=== PATIENT | female | born 1930 | race Caucasian/White ===

== ENCOUNTER 2016-07-14 15:32 | Inpatient (IN) | payer OTHER, BC ==
[~2016-07-14] VITALS: Ht 152.4 cm; Wt 62.3 kg
[~2016-07-14 15:32] MED LIST: ACETAMINOPHEN650 M7 PO; ADULT LOW DOSE81 M1 PO; AMLODIPINE BESYL5 MG PO; AQUAPHOR W-NAT50 GM TP; ASPIR 8181 M1 PO; ASPIR-LOW81 MG PO; ASPIRIN EC325 MG PO; ASPIRIN81 M1 PO; ASPIRIN81 M2 PO; ATORVASTATIN CA40 MG PO; AUGMENTIN875 MG PO; Aspirin E.C. PO; BACTRIM,SEPT1 TABLET PO; CAL-CITRATE PL1 EACH PO; CALCIUM 600 +1 EAC1 PO; CALCIUM CITRAT1 EA10 PO; CEFTIN250 MG PO; CITRACAL D + H1 EACH PO; CLOPIDOGREL75 MG PO; COL-RITE100 M1 PO; COLACE100 MG PO; CYCLOBENZAPRINE5 M1 PO; DELTASONE DOSEPA5 MG PO; DILAUDID2 MG PO; DOCUSATE SODIU100 MG PO; DULCOLAX10 MG PR; DUONEB 2.5-0.5 M3 ML IH; DURAGESIC12 MCG TD; DURAGESIC25 MCG TD; DURAGESIC50 MCG TD; ELIQUIS2.5 MG PO; ENSURE LIQUID237 M2 PO; ESTRACE1 MG PO; ESTRACE42.5 GM VG; FENTANYL1 EAC1 TD; FENTANYL1 EAC4 TD; FERROUS SULFAT325 MG PO; FLEXERIL5 MG PO; FOLIC ACID1 MG PO; FOSAMAX70 MG PO; FUROSEMIDE20 MG PO; FUROSEMIDE40 MG PO; GLUCOTROL XL10 MG PO; IRON325 M1 PO; IRON325 MG PO; IRON55 MG PO; LEVAQUIN500 MG PO; LEVEMIR100 UNIT/1 SQ; LEVOTHYROXINE88 MCG PO; LIDOCAINE700 MG TD; LIPITOR40 MG PO; LISINOPRIL5 MG PO; LOPRESSOR25 MG PO; LOPRESSOR50 MG PO; LOSARTAN POTASS25 MG PO; MAGNESIUM500 MG PO; METHOTREXATE2.5 MG PO; METOPROLOL SUCC25 MG PO; METOPROLOL TART25 MG PO; MILK OF MAGN PO; MIRALAX17 GM PO; MIRALAX255 GM PO; NITROSTAT0.4 MG SL; NIZORAL 2% CREA15 GM TP; NORVASC5 MG PO; NOVOLOG PE100 UNITS/ SC; OXYBUTYNIN CHLOR5 MG PO; PANTOPRAZOLE SO40 MG PO; PLAVIX75 MG PO; POTASSIUM CHLO20 ME1 PO; PRAVASTATIN SOD80 MG PO; PREDNISONE1 MG PO; PRILOSEC20 MG PO; PROMETHAZINE HC25 M1 PO; PROMETHAZINE12.5 M1 PO; PROTONIX40 MG PO; RAYOS2 MG PO; SLOW FE142 MG PO; ST. JOSEPH ASPI81 MG PO; SYNTHROID50 MCG PO; SYNTHROID75 MCG PO; SYNTHROID88 MCG PO; THERAGRAN1 TABLET PO; TIROSINT75 MCG PO; TOLTERODINE TART2 M1 PO; TRAMADOL HCL50 MG PO; TYLENOL325 M1 PO; TYLENOL650 MG PR; ULTRAM50 MG PO; WELCHOL625 MG PO
[2016-07-14 17:33] LABS: ADD MIUA? NO; BILIRUBIN NEGATIVE; BLOOD NEGATIVE; COLOR YELLOW ((YELLOW)); GLUCOSE (STRIP) NEGATIVE; KETONES NEGATIVE; LEUKOCYTES NEGATIVE; NITRITE NEGATIVE; PROTEIN (STRIP) NEGATIVE; SPECIFIC GRAVITY 1.015 (1.000-1.030); UCUL ADDED? NO; UROBILINOGEN 0.2 MG/DL (0.2-1.0)
[2016-07-14 17:39] LABS: EOSINOPHIL (%) 1.8 % (0-5); EOSINOPHIL COUNT 0.2 K/uL (0-0.3); HEMATOCRIT 41.3 % (36.0-46.0); IMMATURE GRANULOCYTE (%) 0.1 % (0.0-0.7); IMMATURE GRANULOCYTE COUNT 0.1 K/uL; LYMPHOCYTE COUNT 1.6 K/uL (1.0-2.8); MCH 30.1 PG (29.0-34.0); MCHC 32.7 G/DL (30.0-36.0); MCV 92.2 FL (83-99); MEAN PLAT.VOLUME 10.3 uM^3 (9.5-12.4); MONOCYTE (%) 11.8 % (3-12); MONOCYTE COUNT 1.2 K/uL (0-0.8); NEUTROPHIL (%) 70.4 % (45-76); NEUTROPHIL COUNT 7.1 K/uL (1.8-6.4); PLATELET COUNT 219 K/uL (156-360); RBC DIS.WIDTH-CV 13.9 % (11.8-14.6); RBC DIS.WIDTH-SD 45.9 % (39-53); RED BLOOD COUNT 4.48 M/uL (3.80-5.20)
[2016-07-14 17:57] LABS: LIPASE 22 U/L (1.0-51.0)
[2016-07-14 18:01] LABS: TROP-I INTERPRETATION NEGATIVE; TROPONIN-I < 0.01 ng/mL (0.0-0.30)
[2016-07-14 21:53] LABS: CHLORIDE 112 mEq/L (99-109); POTASSIUM 4.1 mEq/L (3.7-5.4); SODIUM 145 mEq/L (136-147)
[2016-07-14 22:07] LABS: GLUCOSE 118 mg/dL (70-99)
[2016-07-14 22:08] LABS: ANION GAP 11 MEQ/L (2-14)
[2016-07-14 22:09] LABS: TOTAL BILIRUBIN 0.6 mg/dL (0.0-1.0)
[2016-07-14 22:10] LABS: ALKALINE PHOSPHATASE 59 IU/L (3-129)
[2016-07-14 22:11] LABS: GFR ESTIMATE (CALCULATED) > 59 mL/min/
[2016-07-14 22:12] LABS: UREA NITROGEN (BUN) 15 mg/dL (9-23)
[2016-07-14] MEDS ORDERED: LO-DOSE ASPIRIN81 M2 PO (23:29)
[2016-07-14] MEDS ORDERED: ESTRACE42.5 GM VG (23:29)
[2016-07-14] MEDS ORDERED: AZITHROMYCIN500 M1 PO (23:30)
[2016-07-14] MEDS ORDERED: PREDNISONE1 MG PO (23:30)
[2016-07-15 01:25] LABS: TROP-I INTERPRETATION NEGATIVE; TROPONIN-I < 0.01 ng/mL (0.0-0.30)
[2016-07-15 02:15] VITALS: BP 157/67
[2016-07-15 05:14] VITALS: BP 146/52
[2016-07-15 08:24] VITALS: BP 143/65
[2016-07-15 08:58] LABS: EOSINOPHIL (%) 3.9 % (0-5); EOSINOPHIL COUNT 0.3 K/uL (0-0.3); HEMATOCRIT 39.5 % (36.0-46.0); IMMATURE GRANULOCYTE (%) 0.1 % (0.0-0.7); LYMPHOCYTE COUNT 2.2 K/uL (1.0-2.8); MCH 29.6 PG (29.0-34.0); MCHC 31.9 G/DL (30.0-36.0); MCV 92.9 FL (83-99); MEAN PLAT.VOLUME 10.5 uM^3 (9.5-12.4); NEUTROPHIL (%) 54.1 % (45-76); NEUTROPHIL COUNT 4.1 K/uL (1.8-6.4); PLATELET COUNT 200 K/uL (156-360); RBC DIS.WIDTH-SD 47.8 % (39-53); RED BLOOD COUNT 4.25 M/uL (3.80-5.20); WHITE BLOOD COUNT 7.6 K/uL (4.1-10.2)
[2016-07-15 09:21] LABS: ALKALINE PHOSPHATASE 43 IU/L (3-129); ANION GAP 9 MEQ/L (2-14); CHLORIDE 110 MEQ/L (99-109); GFR ESTIMATE (CALCULATED) > 59 mL/min/; SAMPLE HEMOLYSIS CHECK 0; SAMPLE ICTERIC CHECK 0; SAMPLE LIPEMIA CHECK 0; SODIUM 143 MEQ/L (136-147); TOTAL BILIRUBIN 0.5 MG/DL (0.0-1.0); UREA NITROGEN (BUN) 11 mg/dL (9-23)
[2016-07-15 09:23] LABS: GLUCOSE 77 mg/dL (70-99)
[2016-07-15 09:25] LABS: TROP-I INTERPRETATION NEGATIVE; TROPONIN-I 0.02 ng/mL (0.0-0.30)
[2016-07-15 11:46] VITALS: BP 116/73
[2016-07-15 13:06] LABS: POINT-OF-CARE METER ID UU13113700
[2016-07-15 16:36] VITALS: BP 136/66
[2016-07-15 18:16] LABS: POINT-OF-CARE METER ID UU13113700
[2016-07-15 22:00] VITALS: BP 165/70
[2016-07-15 22:39] LABS: POINT-OF-CARE METER ID UU13113700
[2016-07-16 02:01] VITALS: BP 196/162
[2016-07-16 02:40] VITALS: BP 171/75
[2016-07-16 06:01] LABS: BASOPHIL COUNT 0.1 K/uL (0-0.1); EOSINOPHIL (%) 3.1 % (0-5); EOSINOPHIL COUNT 0.3 K/uL (0-0.3); HEMATOCRIT 37.4 % (36.0-46.0); IMMATURE GRANULOCYTE (%) 0.1 % (0.0-0.7); LYMPHOCYTE COUNT 2.5 K/uL (1.0-2.8); MCH 29.6 PG (29.0-34.0); MCHC 32.1 G/DL (30.0-36.0); MCV 92.3 FL (83-99); MEAN PLAT.VOLUME 10.7 uM^3 (9.5-12.4); MONOCYTE (%) 13.2 % (3-12); MONOCYTE COUNT 1.2 K/uL (0-0.8); NEUTROPHIL (%) 55.4 % (45-76); NEUTROPHIL COUNT 5.1 K/uL (1.8-6.4); PLATELET COUNT 198 K/uL (156-360); RBC DIS.WIDTH-CV 13.9 % (11.8-14.6); RBC DIS.WIDTH-SD 46.6 % (39-53); RED BLOOD COUNT 4.05 M/uL (3.80-5.20); WHITE BLOOD COUNT 9.2 K/uL (4.1-10.2)
[2016-07-16 06:33] LABS: ANION GAP 6 MEQ/L (2-14); CHLORIDE 110 MEQ/L (99-109); GFR ESTIMATE (CALCULATED) > 59 mL/min/; POTASSIUM 3.6 MEQ/L (3.7-5.4); SAMPLE HEMOLYSIS CHECK 0; SAMPLE ICTERIC CHECK 0; SAMPLE LIPEMIA CHECK 0; SODIUM 140 MEQ/L (136-147); UREA NITROGEN (BUN) 14 mg/dL (9-23)
[2016-07-16 06:34] LABS: GLUCOSE 98 mg/dL (70-99)
[2016-07-16 08:24] VITALS: BP 141/64
[2016-07-16 13:09] VITALS: BP 138/62
[2016-07-16 16:33] LABS: POINT-OF-CARE METER ID UU13113717
[2016-07-16 16:47] VITALS: BP 132/62
[2016-07-16 20:00] VITALS: BP 129/59
[2016-07-17] VITALS (7 sets, daily range): BP systolic 117–159; BP diastolic 60–79
[2016-07-17 11:40] LABS: POINT-OF-CARE METER ID UU14149397
[2016-07-17 16:56] LABS: POINT-OF-CARE METER ID UU14149397
[2016-07-17 21:49] LABS: POINT-OF-CARE METER ID UU14149397
[2016-07-18 03:49] VITALS: BP 189/80
[2016-07-18 08:02] VITALS: BP 136/61
[2016-07-18 11:31] LABS: POINT-OF-CARE METER ID UU14149397
[2016-07-18] MEDS ORDERED: PRAVASTATIN SOD40 MG PO (12:59)
[2016-07-18] MEDS ORDERED: DURAGESIC25 MCG TD (13:02)
[2016-07-18] MEDS ORDERED: ULTRAM50 MG PO (13:02)
[2016-07-18 15:56] VITALS: BP 134/63
== END 2016-07-18 16:11 | DRG 312 ==
LOC: EME → EDBD 15:32 → EDOF 07-15 00:27 → 5WEST 07-15 01:33 → 3EAST 07-15 12:59 → 2EAST 07-15 22:03 → 5WEST 07-15 22:04 → 3EAST 07-16 02:54
PROVIDERS: Emergency Medicine; Hospitalist; Internal Medicine
DX: R55 Syncope and collapse (principal); I10 Essential (primary) hypertension; I48.0 Paroxysmal atrial fibrillation; E11.9 Type 2 diabetes mellitus without complications; E03.9 Hypothyroidism, unspecified; I69.351 Hemiplegia and hemiparesis following cerebral infarction affecting right dominant side; I25.10 Atherosclerotic heart disease of native coronary artery without angina pectoris; K44.9 Diaphragmatic hernia without obstruction or gangrene; F03.90 Unspecified dementia, unspecified severity, without behavioral disturbance, psychotic disturbance, mood disturbance, and anxiety; M06.9 Rheumatoid arthritis, unspecified; K21.9 Gastro-esophageal reflux disease without esophagitis; N32.81 Overactive bladder; Z90.49 Acquired absence of other specified parts of digestive tract; Z96.653 Presence of artificial knee joint, bilateral; Z95.5 Presence of coronary angioplasty implant and graft
CPT/HCPCS: 70450; 71010; 74176; 80048; 80053; 81003; 82948; 83605; 83690; 83735; 84484; 85025; 87040; 93005; 95819; 97530 GP; 99281; 99285; G8978 GP CM; G8979 GP CM; G8987 GO CM; G8988 GO CL; J1815; J2405; J7030; J7512

== ENCOUNTER 2016-08-29 10:44 | Observation (INO) | payer OTHER, BC ==
[~2016-08-29] VITALS: Ht 149.9 cm; Wt 62.8 kg
[~2016-08-29 10:44] MED LIST changes: +AZITHROMYCIN500 M1 PO; +LO-DOSE ASPIRIN81 M2 PO; +PRAVASTATIN SOD40 MG PO
[2016-08-29 11:21] LABS: EOSINOPHIL (%) 2.9 % (0-5); EOSINOPHIL COUNT 0.3 K/uL (0-0.3); HEMATOCRIT 38.8 % (36.0-46.0); IMMATURE GRANULOCYTE (%) 0.3 % (0.0-0.7); INSTRUMENT ABS NEUTROPHIL CT 6.7 K/uL; LYMPHOCYTE COUNT 1.8 K/uL (1.0-2.8); MCH 29.4 PG (29.0-34.0); MCHC 31.2 G/DL (30.0-36.0); MCV 94.4 FL (83-99); MEAN PLAT.VOLUME 10.1 uM^3 (9.5-12.4); MONOCYTE (%) 10.4 % (3-12); NEUTROPHIL (%) 67.5 % (45-76); NEUTROPHIL COUNT 6.7 K/uL (1.8-6.4); PLATELET COUNT 326 K/uL (156-360); RBC DIS.WIDTH-CV 14.1 % (11.8-14.6); RBC DIS.WIDTH-SD 48.6 % (39-53); RED BLOOD COUNT 4.11 M/uL (3.80-5.20); WHITE BLOOD COUNT 9.9 K/uL (4.1-10.2)
[2016-08-29 11:30] LABS: CHLORIDE 110 mEq/L (99-109); POTASSIUM 3.7 mEq/L (3.7-5.4); SODIUM 144 mEq/L (136-147)
[2016-08-29 11:31] LABS: GLUCOSE 139 mg/dL (70-99); INTER. NORMALIZED RATIO 1.1; PTT 31.5 (25-32)
[2016-08-29 11:33] LABS: ANION GAP 9 MEQ/L (2-14)
[2016-08-29 11:35] LABS: GFR ESTIMATE (CALCULATED) 50 mL/min/
[2016-08-29 11:36] LABS: UREA NITROGEN (BUN) 17 mg/dL (9-23)
[2016-08-29 11:42] LABS: TROP-I INTERPRETATION NEGATIVE; TROPONIN-I 0.01 ng/mL (0.0-0.30)
[2016-08-29 13:51] VITALS: BP 116/55
[2016-08-29 15:58] VITALS: BP 115/61
[2016-08-29] MEDS ORDERED: DURAGESIC25 MCG TD (16:53)
[2016-08-29] MEDS ORDERED: TRAMADOL HCL50 MG PO (17:00)
[2016-08-29] MEDS ORDERED: VITAMIN B-12500 MC5 SL (17:05)
[2016-08-29] MEDS ORDERED: PROMETHAZINE12.5 M1 PO (17:09)
[2016-08-29 17:23] LABS: TROP-I INTERPRETATION NEGATIVE; TROPONIN-I 0.02 ng/mL (0.0-0.30)
[2016-08-29 19:43] VITALS: BP 126/70
[2016-08-30] VITALS: BP 137/70
[2016-08-30 00:18] LABS: TROP-I INTERPRETATION NEGATIVE; TROPONIN-I 0.01 ng/mL (0.0-0.30)
[2016-08-30 04:12] VITALS: BP 143/65
[2016-08-30 05:36] LABS: HEMATOCRIT 35.7 % (36.0-46.0); MCH 29.4 PG (29.0-34.0); MCHC 31.1 G/DL (30.0-36.0); MCV 94.4 FL (83-99); PLATELET COUNT 289 K/uL (156-360); RBC DIS.WIDTH-CV 14.4 % (11.8-14.6); RBC DIS.WIDTH-SD 50.1 % (39-53); RED BLOOD COUNT 3.78 M/uL (3.80-5.20); WHITE BLOOD COUNT 7.8 K/uL (4.1-10.2)
[2016-08-30 05:41] LABS: ANION GAP 9 MEQ/L (2-14); CHLORIDE 108 MEQ/L (99-109); GFR ESTIMATE (CALCULATED) > 59 mL/min/; POTASSIUM 3.9 MEQ/L (3.7-5.4); SAMPLE HEMOLYSIS CHECK 0; SAMPLE ICTERIC CHECK 0; SAMPLE LIPEMIA CHECK 0; SODIUM 140 MEQ/L (136-147); UREA NITROGEN (BUN) 17 mg/dL (9-23)
[2016-08-30 05:43] LABS: GLUCOSE 79 mg/dL (70-99)
[2016-08-30 07:15] VITALS: BP 130/64
== END 2016-08-30 12:23 | disposition home or self-care (01) ==
LOC: EME → EDBD 10:44 → EME 10:44 → EDOF 12:42 → 5WEST 12:42 → EDOF 12:42 → 5WEST 13:29
PROVIDERS: Emergency Medicine; Hospitalist
DX: R55 Syncope and collapse (principal); E86.0 Dehydration; I10 Essential (primary) hypertension; I48.0 Paroxysmal atrial fibrillation; I25.10 Atherosclerotic heart disease of native coronary artery without angina pectoris; I25.5 Ischemic cardiomyopathy; M06.9 Rheumatoid arthritis, unspecified; E11.9 Type 2 diabetes mellitus without complications; E78.5 Hyperlipidemia, unspecified; F01.50 Vascular dementia, unspecified severity, without behavioral disturbance, psychotic disturbance, mood disturbance, and anxiety; I69.354 Hemiplegia and hemiparesis following cerebral infarction affecting left non-dominant side; Z95.5 Presence of coronary angioplasty implant and graft
CPT/HCPCS: 70450; 71010; 80048; 84484; 85025; 85027; 85610; 85730; 93005; 99281; 99285; G0378; G8987 GO CI; G8987 GO CJ; J7030; J7512

== ENCOUNTER 2016-12-17 10:10 | Emergency (ER) | payer OTHER, BC ==
[~2016-12-17] VITALS: Ht 152.4 cm; Wt 56.5 kg
[~2016-12-17 10:10] MED LIST changes: +VITAMIN B-12500 MC5 SL
[2016-12-17 10:43] LABS: BASOPHIL COUNT 0.1 K/uL (0-0.1); EOSINOPHIL (%) 2.9 % (0-5); EOSINOPHIL COUNT 0.3 K/uL (0-0.3); HEMATOCRIT 42.1 % (36.0-46.0); IMMATURE GRANULOCYTE (%) 0.3 % (0.0-0.7); INSTRUMENT ABS NEUTROPHIL CT 4.4 K/uL; LYMPHOCYTE COUNT 3.5 K/uL (1.0-2.8); MCH 28.9 PG (29.0-34.0); MCHC 32.3 G/DL (30.0-36.0); MCV 89.4 FL (83-99); MEAN PLAT.VOLUME 10.2 uM^3 (9.5-12.4); MONOCYTE (%) 10.7 % (3-12); NEUTROPHIL (%) 47.5 % (45-76); NEUTROPHIL COUNT 4.4 K/uL (1.8-6.4); PLATELET COUNT 210 K/uL (156-360); RBC DIS.WIDTH-CV 14.1 % (11.8-14.6); RBC DIS.WIDTH-SD 46.2 % (39-53); RED BLOOD COUNT 4.71 M/uL (3.80-5.20); WHITE BLOOD COUNT 9.2 K/uL (4.1-10.2)
[2016-12-17 10:52] LABS: AMYLASE 39 IU/L (1-118); CHLORIDE 110 mEq/L (99-109); POTASSIUM 3.6 mEq/L (3.7-5.4); SODIUM 143 mEq/L (136-147)
[2016-12-17 10:53] LABS: INTER. NORMALIZED RATIO 1.1; PROTHROMBIN TIME 11.2 (9.2-11.2); PTT 32.8 (25-32)
[2016-12-17 10:54] LABS: GLUCOSE 127 mg/dL (70-99)
[2016-12-17 10:56] LABS: ANION GAP 8 MEQ/L (2-14)
[2016-12-17 10:57] LABS: SERUM ETHYL ALCOHOL < 10 mg/dL
[2016-12-17 10:58] LABS: GFR ESTIMATE (CALCULATED) > 59 mL/min/
[2016-12-17 10:59] LABS: UREA NITROGEN (BUN) 15 mg/dL (9-23)
[2016-12-17 11:01] LABS: LIPASE 20 U/L (1.0-51.0)
[2016-12-17 11:04] LABS: ADD MIUA? YES; BILIRUBIN NEGATIVE; BLOOD NEGATIVE; COLOR YELLOW ((YELLOW)); GLUCOSE (STRIP) NEGATIVE; KETONES NEGATIVE; LEUKOCYTES NEGATIVE; NITRITE NEGATIVE; PROTEIN (STRIP) NEGATIVE; UROBILINOGEN 0.2 MG/DL (0.2-1.0)
[2016-12-17 11:07] LABS: TROP-I INTERPRETATION NEGATIVE; TROPONIN-I < 0.01 ng/mL (0.0-0.30)
[2016-12-17 11:07] LABS: BACTERIA NONE SEEN /HPF; EPITHELIAL CELLS RARE /HPF; MUCUS TRACE /LPF; RED BLOOD CELLS 0-5 /HPF (0-5); UCUL ADDED? NO; WHITE BLOOD CELLS 0-5 /HPF (0-5)
[2016-12-17 11:15] LABS: AMPHETAMINE NEGATIVE (500 ng/mL); BARBITURATES NEGATIVE (200 ng/mL); BENZODIAZEPINES NEGATIVE (150 ng/mL); COCAINE NEGATIVE (150 ng/mL); INTERNAL CONTROLS VALID? YES; METHADONE NEGATIVE (200 ng/mL); METHAMPHETAMINE NEGATIVE (500 ng/mL); OPIATES (MORPHINE) NEGATIVE (100 ng/mL); OXYCODONE NEGATIVE (100 ng/mL); PHENCYCLIDINE NEGATIVE (25 ng/mL); PROPOXYPHENE NEGATIVE (300 ng/mL); THC CANNABINOIDS NEGATIVE (50 ng/mL); TRICYCLIC ANTIDEPRESSANTS NEGATIVE (300 ng/mL)
[2016-12-17 17:26] VITALS: BP 142/74
== END 2016-12-17 17:28 | disposition short-term general hospital (02) ==
LOC: EME 10:10
PROVIDERS: Emergency Medicine
DX: I65.22 Occlusion and stenosis of left carotid artery (principal); R41.82 Altered mental status, unspecified; R53.1 Weakness; R11.2 Nausea with vomiting, unspecified; R51 Headache; Z79.01 Long term (current) use of anticoagulants; Z79.82 Long term (current) use of aspirin; I65.01 Occlusion and stenosis of right vertebral artery; Z86.73 Personal history of transient ischemic attack (TIA), and cerebral infarction without residual deficits; Z79.52 Long term (current) use of systemic steroids
CPT/HCPCS: 70450; 70496; 70498; 80048; 81003; 82150; 83690; 84484; 85025; 85610; 85730; 86900; 86901; 93005; 99281; 99285; G0480; J2405

== ENCOUNTER 2017-05-12 11:08 | Inpatient (IN) | payer OTHER, BC ==
[~2017-05-12] VITALS: Ht 149.9 cm; Wt 59.0 kg
[2017-05-12 12:15] LABS: BASOPHIL COUNT 0.1 K/uL (0-0.1); EOSINOPHIL (%) 3.6 % (0-5); EOSINOPHIL COUNT 0.3 K/uL (0-0.3); HEMATOCRIT 42.9 % (36.0-46.0); IMMATURE GRANULOCYTE (%) 0.3 % (0.0-0.7); INSTRUMENT ABS NEUTROPHIL CT 5.3 K/uL; LYMPHOCYTE COUNT 2.1 K/uL (1.0-2.8); MCH 29.4 PG (29.0-34.0); MCHC 31.9 G/DL (30.0-36.0); MCV 92.1 FL (83-99); MEAN PLAT.VOLUME 10.4 uM^3 (9.5-12.4); MONOCYTE (%) 12.5 % (3-12); MONOCYTE COUNT 1.1 K/uL (0-0.8); NEUTROPHIL (%) 59.7 % (45-76); NEUTROPHIL COUNT 5.3 K/uL (1.8-6.4); PLATELET COUNT 219 K/uL (156-360); RBC DIS.WIDTH-CV 13.6 % (11.8-14.6); RBC DIS.WIDTH-SD 46.2 % (39-53); RED BLOOD COUNT 4.66 M/uL (3.80-5.20); WHITE BLOOD COUNT 8.8 K/uL (4.1-10.2)
[2017-05-12 12:36] LABS: TROP-I INTERPRETATION NEGATIVE; TROPONIN-I < 0.01 ng/mL (0.0-0.30)
[2017-05-12 12:38] LABS: CK-MB 1.4 ng/mL (0.0-4.9)
[2017-05-12 12:48] LABS: ALKALINE PHOSPHATASE 64 IU/L (3-129); ANION GAP 6 MEQ/L (2-14); CHLORIDE 109 MEQ/L (99-109); CREATINE KINASE 25 IU/L (1-294); GFR ESTIMATE (CALCULATED) > 59 mL/min/; GLUCOSE 116 mg/dL (70-99); POTASSIUM 3.6 MEQ/L (3.7-5.4); SAMPLE HEMOLYSIS CHECK 0; SAMPLE ICTERIC CHECK 0; SAMPLE LIPEMIA CHECK 0; SODIUM 144 MEQ/L (136-147); TOTAL BILIRUBIN 0.3 MG/DL (0.0-1.0); TOTAL CK 25 IU/L (1-294); UREA NITROGEN (BUN) 19 mg/dL (9-23)
[2017-05-12] MEDS ORDERED: EZETIMIBE10 MG PO (14:02)
[2017-05-12 15:39] VITALS: BP 115/56
[2017-05-12 19:03] LABS: TROP-I INTERPRETATION NEGATIVE; TROPONIN-I 0.01 ng/mL (0.0-0.30)
[2017-05-12 23:37] VITALS: BP 132/67
[2017-05-13 01:22] LABS: TROP-I INTERPRETATION NEGATIVE; TROPONIN-I < 0.01 ng/mL (0.0-0.30)
[2017-05-13 03:33] VITALS: BP 115/58
[2017-05-13 07:19] VITALS: BP 146/65
[2017-05-13 10:59] VITALS: BP 131/55
[2017-05-13 16:15] VITALS: BP 138/90
[2017-05-13 20:26] VITALS: BP 129/59
[2017-05-14 05:29] VITALS: BP 139/67
[2017-05-14 07:45] VITALS: BP 144/74; BP 159/93
[2017-05-14 08:00] VITALS: BP 151/67
[2017-05-14 11:14] VITALS: BP 116/56
[2017-05-14] MEDS ORDERED: MIDODRINE HCL5 MG PO (11:35)
[2017-05-14 15:49] VITALS: BP 117/56
== END 2017-05-14 17:01 | disposition home or self-care (01) | DRG 312 ==
LOC: EME 11:08 → 5WEST 13:23 → EDOF 13:23 → ENRESERV 13:24 → 5WEST 15:30
PROVIDERS: Emergency Medicine; Internal Medicine
DX: I95.1 Orthostatic hypotension (principal); I65.23 Occlusion and stenosis of bilateral carotid arteries; I25.10 Atherosclerotic heart disease of native coronary artery without angina pectoris; I69.354 Hemiplegia and hemiparesis following cerebral infarction affecting left non-dominant side; I48.0 Paroxysmal atrial fibrillation; I25.5 Ischemic cardiomyopathy; I48.2 Chronic atrial fibrillation; E03.9 Hypothyroidism, unspecified; I10 Essential (primary) hypertension; E11.9 Type 2 diabetes mellitus without complications; E78.5 Hyperlipidemia, unspecified; K21.9 Gastro-esophageal reflux disease without esophagitis; M06.9 Rheumatoid arthritis, unspecified; M19.90 Unspecified osteoarthritis, unspecified site; K44.9 Diaphragmatic hernia without obstruction or gangrene; F01.50 Vascular dementia, unspecified severity, without behavioral disturbance, psychotic disturbance, mood disturbance, and anxiety; I25.2 Old myocardial infarction; J45.909 Unspecified asthma, uncomplicated; Z95.5 Presence of coronary angioplasty implant and graft; Z79.01 Long term (current) use of anticoagulants; Z79.82 Long term (current) use of aspirin; Z91.81 History of falling; Z98.41 Cataract extraction status, right eye; Z98.42 Cataract extraction status, left eye; Z96.653 Presence of artificial knee joint, bilateral
CPT/HCPCS: 70450; 71010; 80053; 81003; 82550; 82553; 84484; 85025; 93005; 93306; 93880; 95819; 99281; 99285; G0378; G8987 CK; G8988 GO CJ; J2405; J7512

== ENCOUNTER 2017-06-04 11:13 | Inpatient (IN) | payer OTHER, BC ==
[~2017-06-04] VITALS: Ht 149.9 cm; Wt 57.7 kg
[~2017-06-04 11:13] MED LIST changes: +EZETIMIBE10 MG PO; +MIDODRINE HCL5 MG PO
[2017-06-04 11:46] LABS: BASOPHIL (%) 0.7 % (0-1); BASOPHIL COUNT 0.1 K/uL (0-0.1); EOSINOPHIL (%) 3.4 % (0-5); EOSINOPHIL COUNT 0.3 K/uL (0-0.3); HEMOGLOBIN 12.5 G/DL (11.9-15.5); IMMATURE GRANULOCYTE (%) 0.2 % (0.0-0.7); LYMPHOCYTE (%) 27.1 % (15-42); LYMPHOCYTE COUNT 2.4 K/uL (1.0-2.8); MCHC 32.1 G/DL (30.0-36.0); MCV 93.5 FL (83-99); MONOCYTE (%) 13.4 % (3-12); MONOCYTE COUNT 1.2 K/uL (0-0.8); NEUTROPHIL (%) 55.2 % (45-76); PLATELET COUNT 198 K/uL (156-360); RBC DIS.WIDTH-CV 14.3 % (11.8-14.6); RED BLOOD COUNT 4.17 M/uL (3.80-5.20)
[2017-06-04 11:52] LABS: INTER. NORMALIZED RATIO 1.2
[2017-06-04 11:54] LABS: PTT 28.1 SEC (25-37)
[2017-06-04 12:07] LABS: TROP-I INTERPRETATION NEGATIVE; TROPONIN-I < 0.01 ng/mL (0.0-0.30)
[2017-06-04 12:11] LABS: CHLORIDE 110 MEQ/L (99-109); MAGNESIUM 2.2 mg/dl (1.3-2.7); POTASSIUM 3.7 MEQ/L (3.7-5.4); SODIUM 142 MEQ/L (136-147)
[2017-06-04 12:17] LABS: CREATININE 0.9 MG/DL (0.6-1.3); GFR ESTIMATE (CALCULATED) > 59 mL/min/; GLUCOSE 103 mg/dL (70-99); UREA NITROGEN (BUN) 19 mg/dL (9-23)
[2017-06-04 14:00] LABS: APPEARANCE SL.HAZY ((CLEAR)); BILIRUBIN NEGATIVE; BLOOD NEGATIVE; COLOR YELLOW ((YELLOW)); GLUCOSE (STRIP) NEGATIVE; KETONES NEGATIVE; LEUKOCYTES SMALL; NITRITE NEGATIVE; PROTEIN (STRIP) NEGATIVE; SPECIFIC GRAVITY 1.008 (1.000-1.030); UROBILINOGEN 0.2 MG/DL (0.2-1.0)
[2017-06-04 14:13] LABS: BACTERIA RARE /HPF; EPITHELIAL CELLS 1+ /HPF; HYALINE CASTS 0-5 /LPF; MUCUS TRACE /LPF; UCUL ADDED? YES; WHITE BLOOD CELLS 20-30 /HPF (0-5)
[2017-06-04] MEDS ORDERED: K-DUR10 MEQ PO (15:05)
[2017-06-04] MEDS ORDERED: PROAMATINE5 MG PO (15:06)
[2017-06-04 18:07] VITALS: BP 189/79
[2017-06-04 19:09] LABS: TROP-I INTERPRETATION NEGATIVE; TROPONIN-I 0.03 ng/mL (0.0-0.30)
[2017-06-04 19:30] VITALS: BP 172/69
[2017-06-05] VITALS (7 sets, daily range): BP systolic 140–185; BP diastolic 63–85
[2017-06-05 00:54] LABS: TROP-I INTERPRETATION NEGATIVE; TROPONIN-I 0.05 ng/mL (0.0-0.30)
[2017-06-05 05:35] LABS: HEMATOCRIT 36.3 % (36.0-46.0); HEMOGLOBIN 11.7 G/DL (11.9-15.5); MCH 29.3 PG (29.0-34.0); MCHC 32.2 G/DL (30.0-36.0); MCV 90.8 FL (83-99); PLATELET COUNT 212 K/uL (156-360); RBC DIS.WIDTH-CV 14.3 % (11.8-14.6); RBC DIS.WIDTH-SD 47.7 % (39-53); WHITE BLOOD COUNT 9.2 K/uL (4.1-10.2)
[2017-06-05 06:00] LABS: CHLORIDE 113 MEQ/L (99-109); CREATININE 0.7 MG/DL (0.6-1.3); GFR ESTIMATE (CALCULATED) > 59 mL/min/; GLUCOSE 81 mg/dL (70-99); POTASSIUM 3.8 MEQ/L (3.7-5.4); SODIUM 143 MEQ/L (136-147); UREA NITROGEN (BUN) 18 mg/dL (9-23)
[2017-06-05 08:47] LABS: THYROTROPIN (TSH) 0.89 MIU/L (0.4-5.5)
[2017-06-06] VITALS (8 sets, daily range): BP systolic 133–160; BP diastolic 63–74
[2017-06-06 11:32] LABS: APPEARANCE SL.HAZY ((CLEAR)); BILIRUBIN NEGATIVE; BLOOD MODERATE; COLOR YELLOW ((YELLOW)); GLUCOSE (STRIP) NEGATIVE; KETONES 20; LEUKOCYTES NEGATIVE; NITRITE NEGATIVE; PROTEIN (STRIP) NEGATIVE; SPECIFIC GRAVITY 1.015 (1.000-1.030); UROBILINOGEN 0.2 MG/DL (0.2-1.0)
[2017-06-06 11:41] LABS: BACTERIA RARE /HPF; EPITHELIAL CELLS RARE /HPF; HYALINE CASTS 0-5 /LPF; MUCUS 2+ /LPF; RED BLOOD CELLS 15-20 /HPF (0-5); UCUL ADDED? YES
[2017-06-06 14:19] LABS: HEMATOCRIT 37.5 % (36.0-46.0); HEMOGLOBIN 12.4 G/DL (11.9-15.5); MCHC 33.1 G/DL (30.0-36.0); MCV 90.8 FL (83-99); PLATELET COUNT 201 K/uL (156-360); RBC DIS.WIDTH-CV 14.5 % (11.8-14.6); RBC DIS.WIDTH-SD 48.2 % (39-53); RED BLOOD COUNT 4.13 M/uL (3.80-5.20); WHITE BLOOD COUNT 9.3 K/uL (4.1-10.2)
[2017-06-06 15:31] LABS: CHLORIDE 107 MEQ/L (99-109); CREATININE 0.9 MG/DL (0.6-1.3); GFR ESTIMATE (CALCULATED) > 59 mL/min/; GLUCOSE 146 mg/dL (70-99); POTASSIUM 3.8 MEQ/L (3.7-5.4); SODIUM 135 MEQ/L (136-147); UREA NITROGEN (BUN) 18 mg/dL (9-23)
[2017-06-07 04:05] VITALS: BP 167/74
[2017-06-07 09:55] VITALS: BP 152/77
[2017-06-07 12:00] VITALS: BP 142/66
[2017-06-07 17:00] VITALS: BP 157/73
[2017-06-07 19:45] VITALS: BP 159/71
[2017-06-08] VITALS (7 sets, daily range): BP systolic 87–180; BP diastolic 38–95
[2017-06-08 05:45] LABS: HEMOGLOBIN 12.3 G/DL (11.9-15.5); MCH 30.1 PG (29.0-34.0); MCHC 33.2 G/DL (30.0-36.0); MCV 90.5 FL (83-99); PLATELET COUNT 199 K/uL (156-360); RBC DIS.WIDTH-CV 14.3 % (11.8-14.6); RED BLOOD COUNT 4.09 M/uL (3.80-5.20); WHITE BLOOD COUNT 7.5 K/uL (4.1-10.2)
[2017-06-08 06:22] LABS: CHLORIDE 104 MEQ/L (99-109); CREATININE 0.6 MG/DL (0.6-1.3); GFR ESTIMATE (CALCULATED) > 59 mL/min/; MAGNESIUM 1.9 mg/dl (1.3-2.7); POTASSIUM 3.6 MEQ/L (3.7-5.4); SODIUM 133 MEQ/L (136-147); UREA NITROGEN (BUN) 14 mg/dL (9-23)
[2017-06-08 06:23] LABS: GLUCOSE 91 mg/dL (70-99)
[2017-06-09 03:17] VITALS: BP 139/58
[2017-06-09 05:07] LABS: BASOPHIL (%) 0.5 % (0-1); EOSINOPHIL (%) 3.5 % (0-5); EOSINOPHIL COUNT 0.3 K/uL (0-0.3); HEMATOCRIT 39.2 % (36.0-46.0); HEMOGLOBIN 12.7 G/DL (11.9-15.5); IMMATURE GRANULOCYTE (%) 0.4 % (0.0-0.7); LYMPHOCYTE (%) 24.4 % (15-42); LYMPHOCYTE COUNT 1.9 K/uL (1.0-2.8); MCH 29.3 PG (29.0-34.0); MCHC 32.4 G/DL (30.0-36.0); MCV 90.5 FL (83-99); MONOCYTE (%) 17.9 % (3-12); MONOCYTE COUNT 1.4 K/uL (0-0.8); NEUTROPHIL (%) 53.3 % (45-76); NEUTROPHIL COUNT 4.2 K/uL (1.8-6.4); PLATELET COUNT 208 K/uL (156-360); RBC DIS.WIDTH-CV 14.4 % (11.8-14.6); RBC DIS.WIDTH-SD 47.8 % (39-53); RED BLOOD COUNT 4.33 M/uL (3.80-5.20); WHITE BLOOD COUNT 7.8 K/uL (4.1-10.2)
[2017-06-09 05:28] LABS: CHLORIDE 106 MEQ/L (99-109); CREATININE 0.6 MG/DL (0.6-1.3); GFR ESTIMATE (CALCULATED) > 59 mL/min/; GLUCOSE 90 mg/dL (70-99); POTASSIUM 4.1 MEQ/L (3.7-5.4); SODIUM 137 MEQ/L (136-147); UREA NITROGEN (BUN) 15 mg/dL (9-23)
[2017-06-09 09:16] VITALS: BP 147/63
[2017-06-09 12:42] VITALS: BP 150/71
[2017-06-09 16:30] VITALS: BP 173/70
[2017-06-09 20:04] VITALS: BP 124/88
[2017-06-09 23:35] VITALS: BP 164/72
[2017-06-10 03:19] VITALS: BP 144/67
[2017-06-10 09:00] VITALS: BP 118/85
[2017-06-10 12:00] VITALS: BP 123/59
[2017-06-10] MEDS ORDERED: CIPROFLOXACIN500 M1 PO (14:53)
[2017-06-10] MEDS ORDERED: CEFTIN500 MG PO (15:18)
== END 2017-06-10 16:50 | disposition home health service (06) | DRG 312 ==
LOC: EME 11:13 → 4EAST 14:10 → EDOF 14:10 → ENRESERV 14:11 → 4EAST 18:01
PROVIDERS: Emergency Medicine; Internal Medicine; Nurse Practitioner Adult Health; Student in an Organized Health Care Education/Training Program
DX: I95.1 Orthostatic hypotension (principal); N39.0 Urinary tract infection, site not specified; I48.0 Paroxysmal atrial fibrillation; E87.2 Acidosis; I10 Essential (primary) hypertension; E03.9 Hypothyroidism, unspecified; E11.9 Type 2 diabetes mellitus without complications; E78.5 Hyperlipidemia, unspecified; F01.50 Vascular dementia, unspecified severity, without behavioral disturbance, psychotic disturbance, mood disturbance, and anxiety; I25.10 Atherosclerotic heart disease of native coronary artery without angina pectoris; I25.2 Old myocardial infarction; J45.909 Unspecified asthma, uncomplicated; K21.9 Gastro-esophageal reflux disease without esophagitis; M06.9 Rheumatoid arthritis, unspecified; G43.909 Migraine, unspecified, not intractable, without status migrainosus; K44.9 Diaphragmatic hernia without obstruction or gangrene; R00.1 Bradycardia, unspecified; Z79.01 Long term (current) use of anticoagulants; Z79.82 Long term (current) use of aspirin; Z86.73 Personal history of transient ischemic attack (TIA), and cerebral infarction without residual deficits; Z90.710 Acquired absence of both cervix and uterus; Z95.5 Presence of coronary angioplasty implant and graft; Z96.653 Presence of artificial knee joint, bilateral
CPT/HCPCS: 70450; 71010; 80048; 81003; 83605; 83735; 84439; 84443; 84484; 85025; 85027; 85610; 85730; 87040; 87077; 87086; 87186; 92610 GN; 93005; 97530 GO; 97530 GP; 99281; 99285; J0360; J0696; J2405; J3010; J7030

== ENCOUNTER 2017-07-03 13:33 | Inpatient (IN) | payer OTHER, BC ==
[~2017-07-03] VITALS: Ht 149.9 cm; Wt 63.7 kg
[~2017-07-03 13:33] MED LIST changes: +CEFTIN500 MG PO; +CIPROFLOXACIN500 M1 PO; +K-DUR10 MEQ PO; +PROAMATINE5 MG PO
[2017-07-03 14:13] LABS: BASOPHIL (%) 0.3 % (0-1); BASOPHIL COUNT 0.1 K/uL (0-0.1); EOSINOPHIL (%) 0.1 % (0-5); HEMOGLOBIN 12.6 G/DL (11.9-15.5); IMMATURE GRANULOCYTE (%) 0.5 % (0.0-0.7); LYMPHOCYTE (%) 9.4 % (15-42); LYMPHOCYTE COUNT 1.7 K/uL (1.0-2.8); MCH 30.1 PG (29.0-34.0); MCHC 33.2 G/DL (30.0-36.0); MCV 90.9 FL (83-99); MONOCYTE (%) 15.9 % (3-12); MONOCYTE COUNT 2.9 K/uL (0-0.8); NEUTROPHIL (%) 73.8 % (45-76); NEUTROPHIL COUNT 13.7 K/uL (1.8-6.4); PLATELET COUNT 208 K/uL (156-360); RBC DIS.WIDTH-CV 14.7 % (11.8-14.6); RBC DIS.WIDTH-SD 49.1 % (39-53); RED BLOOD COUNT 4.18 M/uL (3.80-5.20); WHITE BLOOD COUNT 18.5 K/uL (4.1-10.2)
[2017-07-03 14:17] LABS: ALBUMIN 3.2 g/dL (3.2-4.8); CHLORIDE 108 mEq/L (99-109); POTASSIUM 3.8 mEq/L (3.7-5.4); SODIUM 137 mEq/L (136-147)
[2017-07-03 14:18] LABS: MAGNESIUM 2.2 mg/dL (1.3-2.7)
[2017-07-03 14:20] LABS: GLUCOSE 167 mg/dL (70-99); TOTAL PROTEIN 6.9 g/dL (6.4-8.3)
[2017-07-03 14:22] LABS: TOTAL BILIRUBIN 1.1 mg/dL (0.0-1.0)
[2017-07-03 14:23] LABS: ALKALINE PHOSPHATASE 78 IU/L (3-129); GFR ESTIMATE (CALCULATED) 55 mL/min/
[2017-07-03 14:24] LABS: UREA NITROGEN (BUN) 27 mg/dL (9-23)
[2017-07-03 14:25] LABS: AST (GOT) 18 IU/L (2-34)
[2017-07-03 14:26] LABS: ALT (GPT) 11 IU/L (3-49)
[2017-07-03 14:27] LABS: LIPASE 6 U/L (1.0-51.0)
[2017-07-03 14:28] LABS: TROP-I INTERPRETATION POSITIVE
[2017-07-03 14:32] LABS: TROPONIN-I 0.64 ng/mL (0.0-0.30)
[2017-07-03 15:30] LABS: THYROTROPIN (TSH) 1.5 MIU/L (0.4-5.5)
[2017-07-03 16:33] LABS: APPEARANCE TURBID ((CLEAR)); BILIRUBIN NEGATIVE; BLOOD NEGATIVE; COLOR AMBER ((YELLOW)); GLUCOSE (STRIP) NEGATIVE; KETONES NEGATIVE; LEUKOCYTES MODERATE; NITRITE NEGATIVE; PROTEIN (STRIP) >=500; UROBILINOGEN 0.2 MG/DL (0.2-1.0)
[2017-07-03 16:54] LABS: WHITE BLOOD CELLS 20-30 /HPF (0-5)
[2017-07-03 16:55] LABS: BACTERIA 4+ /HPF; EPITHELIAL CELLS NONE SEEN /HPF; MUCUS NONE SEEN /LPF; UCUL ADDED? YES
[2017-07-03 16:56] LABS: TRIPLE PHOSPHATE CRYSTALS RARE /HPF
[2017-07-03 18:10] LABS: TROP-I INTERPRETATION POSITIVE
[2017-07-03 18:11] LABS: TROPONIN-I 0.84 ng/mL (0.0-0.30)
[2017-07-03 19:00] VITALS: BP 150/67
[2017-07-03 23:30] VITALS: BP 124/60
[2017-07-04] VITALS (18 sets, daily range): BP systolic 103–148; BP diastolic 57–102
[2017-07-04 05:39] LABS: BASOPHIL (%) 0.4 % (0-1); BASOPHIL COUNT 0.1 K/uL (0-0.1); EOSINOPHIL (%) 0.6 % (0-5); EOSINOPHIL COUNT 0.1 K/uL (0-0.3); HEMATOCRIT 33.9 % (36.0-46.0); HEMOGLOBIN 10.8 G/DL (11.9-15.5); IMMATURE GRANULOCYTE (%) 0.6 % (0.0-0.7); LYMPHOCYTE (%) 11.1 % (15-42); LYMPHOCYTE COUNT 1.8 K/uL (1.0-2.8); MCH 29.1 PG (29.0-34.0); MCHC 31.9 G/DL (30.0-36.0); MCV 91.4 FL (83-99); MONOCYTE (%) 15.4 % (3-12); MONOCYTE COUNT 2.4 K/uL (0-0.8); NEUTROPHIL (%) 71.9 % (45-76); NEUTROPHIL COUNT 11.4 K/uL (1.8-6.4); PLATELET COUNT 198 K/uL (156-360); RBC DIS.WIDTH-CV 14.6 % (11.8-14.6); RED BLOOD COUNT 3.71 M/uL (3.80-5.20); WHITE BLOOD COUNT 15.8 K/uL (4.1-10.2)
[2017-07-04 07:12] LABS: CHLORIDE 112 MEQ/L (99-109); CREATININE 0.6 MG/DL (0.6-1.3); GFR ESTIMATE (CALCULATED) > 59 mL/min/; POTASSIUM 3.3 MEQ/L (3.7-5.4); SODIUM 141 MEQ/L (136-147); UREA NITROGEN (BUN) 24 mg/dL (9-23)
[2017-07-04 07:14] LABS: GLUCOSE 78 mg/dL (70-99)
[2017-07-04 08:56] LABS: TROP-I INTERPRETATION INDETERMINATE; TROPONIN-I 0.46 ng/mL (0.0-0.30)
[2017-07-05 03:00] VITALS: BP 121/69
[2017-07-05 06:27] LABS: HEMATOCRIT 36.1 % (36.0-46.0); HEMOGLOBIN 11.6 G/DL (11.9-15.5); MCH 29.4 PG (29.0-34.0); MCHC 32.1 G/DL (30.0-36.0); MCV 91.4 FL (83-99); RBC DIS.WIDTH-CV 14.7 % (11.8-14.6); RBC DIS.WIDTH-SD 49.5 % (39-53); RED BLOOD COUNT 3.95 M/uL (3.80-5.20); WHITE BLOOD COUNT 12.1 K/uL (4.1-10.2)
[2017-07-05 06:41] LABS: CHLORIDE 115 MEQ/L (99-109); CREATININE 0.7 MG/DL (0.6-1.3); GFR ESTIMATE (CALCULATED) > 59 mL/min/; GLUCOSE 96 mg/dL (70-99); POTASSIUM 3.6 MEQ/L (3.7-5.4); SODIUM 140 MEQ/L (136-147); UREA NITROGEN (BUN) 23 mg/dL (9-23)
[2017-07-05 07:13] LABS: PLAT.SUFFICIENCY ADEQUATE; PLATELET CLUMPS PRESENT - PLATELET COUNT APPEARS ADQ.
[2017-07-05 07:22] LABS: PLATELET COUNT UNABLE TO REPORT K/uL (156-360)
[2017-07-05 08:25] VITALS: BP 148/68
[2017-07-05 12:30] VITALS: BP 132/60
[2017-07-05 15:23] VITALS: BP 126/60
[2017-07-05 20:33] VITALS: BP 148/87
[2017-07-05 22:43] VITALS: BP 134/95
[2017-07-06 03:38] VITALS: BP 145/70
[2017-07-06 08:10] VITALS: BP 169/77
[2017-07-06 12:21] LABS: BASOPHIL (%) 0.4 % (0-1); EOSINOPHIL (%) 0.4 % (0-5); HEMATOCRIT 37.2 % (36.0-46.0); HEMOGLOBIN 11.8 G/DL (11.9-15.5); IMMATURE GRANULOCYTE (%) 0.3 % (0.0-0.7); LYMPHOCYTE (%) 5.8 % (15-42); LYMPHOCYTE COUNT 0.5 K/uL (1.0-2.8); MCH 28.8 PG (29.0-34.0); MCHC 31.7 G/DL (30.0-36.0); MCV 90.7 FL (83-99); MONOCYTE (%) 9.4 % (3-12); MONOCYTE COUNT 0.9 K/uL (0-0.8); NEUTROPHIL (%) 83.7 % (45-76); NEUTROPHIL COUNT 7.6 K/uL (1.8-6.4); PLATELET COUNT 259 K/uL (156-360); RBC DIS.WIDTH-CV 14.5 % (11.8-14.6); RBC DIS.WIDTH-SD 48.2 % (39-53); WHITE BLOOD COUNT 9.1 K/uL (4.1-10.2)
[2017-07-06 12:43] VITALS: BP 178/75
[2017-07-06 12:54] LABS: CHLORIDE 112 MEQ/L (99-109); POTASSIUM 3.7 MEQ/L (3.7-5.4); SODIUM 142 MEQ/L (136-147)
[2017-07-06 13:15] LABS: CREATININE 0.6 MG/DL (0.6-1.3); GFR ESTIMATE (CALCULATED) > 59 mL/min/; UREA NITROGEN (BUN) 17 mg/dL (9-23)
[2017-07-06 13:16] LABS: GLUCOSE 157 mg/dL (70-99)
[2017-07-06 16:00] VITALS: BP 187/91
[2017-07-06 20:00] VITALS: BP 142/80
[2017-07-06 20:46] VITALS: BP 143/85
[2017-07-07] VITALS (7 sets, daily range): BP systolic 138–185; BP diastolic 59–93
[2017-07-08 04:00] VITALS: BP 184/90
[2017-07-08 05:39] VITALS: BP 170/75
[2017-07-08 08:00] VITALS: BP 147/59
[2017-07-08] MEDS ORDERED: DUONEB 2.5-0.5 M3 ML AEROSOL (11:21)
[2017-07-08] MEDS ORDERED: AUGMENTIN875 MG PO (11:21)
[2017-07-08] MEDS ORDERED: LOPRESSOR25 MG PO (11:22)
[2017-07-08] MEDS ORDERED: PREDNISONE10 MG PO (11:24)
[2017-07-08 12:00] VITALS: BP 137/68
== END 2017-07-08 17:43 | DRG 871 ==
LOC: EME 13:33 → 4EAST 15:20 → EDOF 15:20 → ENRESERV 15:22 → 4EAST 18:59 → ENPENDDIS 07-08 → 4EAST 07-08 17:43
PROVIDERS: Emergency Medicine; Internal Medicine; Internal Medicine Cardiovascular Disease; Internal Medicine Pulmonary Disease
DX: A41.9 Sepsis, unspecified organism (principal); J69.0 Pneumonitis due to inhalation of food and vomit; G93.41 Metabolic encephalopathy; I21.A1 Myocardial infarction type 2; N39.0 Urinary tract infection, site not specified; B96.4 Proteus (mirabilis) (morganii) as the cause of diseases classified elsewhere; E87.2 Acidosis; G47.30 Sleep apnea, unspecified; E03.9 Hypothyroidism, unspecified; E11.9 Type 2 diabetes mellitus without complications; E78.5 Hyperlipidemia, unspecified; F01.50 Vascular dementia, unspecified severity, without behavioral disturbance, psychotic disturbance, mood disturbance, and anxiety; I10 Essential (primary) hypertension; I25.10 Atherosclerotic heart disease of native coronary artery without angina pectoris; I48.0 Paroxysmal atrial fibrillation; G43.909 Migraine, unspecified, not intractable, without status migrainosus; J45.909 Unspecified asthma, uncomplicated; K21.9 Gastro-esophageal reflux disease without esophagitis; M06.9 Rheumatoid arthritis, unspecified; R32 Unspecified urinary incontinence; I69.354 Hemiplegia and hemiparesis following cerebral infarction affecting left non-dominant side; Z79.01 Long term (current) use of anticoagulants; I25.2 Old myocardial infarction; Z95.5 Presence of coronary angioplasty implant and graft
CPT/HCPCS: 71045; 74230; 80048; 80053; 81003; 83605; 83690; 83735; 84443; 84484; 85025; 85027; 87040; 87070; 87077; 87086; 87186; 87205; 87449; 87502; 87641; 92610 GN; 92611 GN; 93005; 94640; 94640 76; 97530 GO; 99202; 99281; 99285; J0456; J1940; J2543; J2920; J3370; J7030; J7050; J7512

== ENCOUNTER 2017-07-19 18:23 | Inpatient (IN) | payer OTHER, BC ==
[~2017-07-19] VITALS: Ht 149.9 cm; Wt 59.9 kg
[~2017-07-19 18:23] MED LIST changes: +DUONEB 2.5-0.5 M3 ML AEROSOL; -ELIQUIS2.5 MG PO; -EZETIMIBE10 MG PO; -K-DUR10 MEQ PO; +PREDNISONE10 MG PO; -SYNTHROID88 MCG PO; -VITAMIN B-12500 MC5 SL
[2017-07-19 19:12] LABS: BASOPHIL (%) 0.4 % (0-1); EOSINOPHIL COUNT 0.2 K/uL (0-0.3); HEMATOCRIT 32.7 % (36.0-46.0); HEMOGLOBIN 10.7 G/DL (11.9-15.5); IMMATURE GRANULOCYTE (%) 0.4 % (0.0-0.7); LYMPHOCYTE (%) 15.2 % (15-42); LYMPHOCYTE COUNT 1.4 K/uL (1.0-2.8); MCH 29.1 PG (29.0-34.0); MCHC 32.7 G/DL (30.0-36.0); MCV 88.9 FL (83-99); MONOCYTE (%) 13.8 % (3-12); MONOCYTE COUNT 1.2 K/uL (0-0.8); NEUTROPHIL (%) 68.2 % (45-76); NEUTROPHIL COUNT 6.1 K/uL (1.8-6.4); PLATELET COUNT 309 K/uL (156-360); RBC DIS.WIDTH-CV 14.5 % (11.8-14.6); RBC DIS.WIDTH-SD 46.8 % (39-53); RED BLOOD COUNT 3.68 M/uL (3.80-5.20)
[2017-07-19 19:18] LABS: INTER. NORMALIZED RATIO 1.5
[2017-07-19 19:20] LABS: PTT 32.5 SEC (25-37)
[2017-07-19 19:25] LABS: ALBUMIN 2.6 g/dL (3.2-4.8); CHLORIDE 102 mEq/L (99-109); POTASSIUM 3.8 mEq/L (3.7-5.4); SODIUM 133 mEq/L (136-147)
[2017-07-19 19:27] LABS: GLUCOSE 95 mg/dL (70-99); TOTAL PROTEIN 6.5 g/dL (6.4-8.3)
[2017-07-19 19:29] LABS: TOTAL BILIRUBIN 0.6 mg/dL (0.0-1.0)
[2017-07-19 19:31] LABS: ALKALINE PHOSPHATASE 75 IU/L (3-129); CREATININE 0.7 mg/dL (0.6-1.3); GFR ESTIMATE (CALCULATED) > 59 mL/min/
[2017-07-19 19:32] LABS: UREA NITROGEN (BUN) 15 mg/dL (9-23)
[2017-07-19 19:33] LABS: AST (GOT) 29 IU/L (2-34)
[2017-07-19 19:34] LABS: ALT (GPT) 18 IU/L (3-49)
[2017-07-19 19:36] LABS: TROP-I INTERPRETATION NEGATIVE; TROPONIN-I 0.04 ng/mL (0.0-0.30)
[2017-07-19 20:21] LABS: THYROTROPIN (TSH) 5.9 MIU/L (0.4-5.5)
[2017-07-19 20:30] LABS: APPEARANCE CLEAR ((CLEAR)); BILIRUBIN NEGATIVE; BLOOD MODERATE; COLOR YELLOW ((YELLOW)); GLUCOSE (STRIP) NEGATIVE; KETONES 5; LEUKOCYTES NEGATIVE; NITRITE NEGATIVE; PROTEIN (STRIP) NEGATIVE; SPECIFIC GRAVITY 1.015 (1.000-1.030)
[2017-07-19] MEDS ORDERED: SYNTHROID88 MCG PO (20:43)
[2017-07-19] MEDS ORDERED: ELIQUIS2.5 MG PO (20:43)
[2017-07-19] MEDS ORDERED: IRON325 M1 PO (20:44)
[2017-07-19] MEDS ORDERED: COLACE100 MG PO (20:44)
[2017-07-19] MEDS ORDERED: PANTOPRAZOLE SO40 MG PO (20:44)
[2017-07-19] MEDS ORDERED: PREDNISONE1 MG PO (20:45)
[2017-07-19] MEDS ORDERED: VITAMIN B-12500 MC5 SL (20:45)
[2017-07-19] MEDS ORDERED: EZETIMIBE10 MG PO (20:45)
[2017-07-19] MEDS ORDERED: K-DUR10 MEQ PO (20:46)
[2017-07-19] MEDS ORDERED: MILK OF MAGN PO (20:48)
[2017-07-19 20:52] LABS: BACTERIA NONE SEEN /HPF; EPITHELIAL CELLS RARE /HPF; HYALINE CASTS 0-5 /LPF; MUCUS 2+ /LPF; RED BLOOD CELLS TNTC /HPF (0-5); UCUL ADDED? YES
[2017-07-19] MEDS ORDERED: ROBAFEN DM COU118 M1 PO (20:52)
[2017-07-19] MEDS ORDERED: LASIX20 MG PO (20:57)
[2017-07-19] MEDS ORDERED: FENTANYL1 EAC5 TD (20:58)
[2017-07-19] MEDS ORDERED: TRAMADOL HCL50 MG PO (21:00)
[2017-07-19] MEDS ORDERED: TYLENOL REGULA325 MG PO (21:02)
[2017-07-19 22:49] VITALS: BP 104/57
[2017-07-20] VITALS (7 sets, daily range): BP systolic 104–168; BP diastolic 57–96
[2017-07-20 06:38] LABS: HEMATOCRIT 31.2 % (36.0-46.0); HEMOGLOBIN 10.1 G/DL (11.9-15.5); MCH 29.1 PG (29.0-34.0); MCHC 32.4 G/DL (30.0-36.0); MCV 89.9 FL (83-99); PLATELET COUNT 293 K/uL (156-360); RBC DIS.WIDTH-CV 14.5 % (11.8-14.6); RBC DIS.WIDTH-SD 47.7 % (39-53); RED BLOOD COUNT 3.47 M/uL (3.80-5.20); WHITE BLOOD COUNT 6.8 K/uL (4.1-10.2)
[2017-07-20 07:04] LABS: CHLORIDE 107 MEQ/L (99-109); CREATININE 0.6 MG/DL (0.6-1.3); GFR ESTIMATE (CALCULATED) > 59 mL/min/; GLUCOSE 135 mg/dL (70-99); POTASSIUM 3.6 MEQ/L (3.7-5.4); SODIUM 135 MEQ/L (136-147); UREA NITROGEN (BUN) 11 mg/dL (9-23)
[2017-07-21] VITALS: BP 154/72
[2017-07-21 03:52] VITALS: BP 159/75
[2017-07-21 06:49] LABS: BASOPHIL (%) 0.5 % (0-1); EOSINOPHIL (%) 2.6 % (0-5); EOSINOPHIL COUNT 0.2 K/uL (0-0.3); HEMATOCRIT 32.9 % (36.0-46.0); HEMOGLOBIN 10.3 G/DL (11.9-15.5); IMMATURE GRANULOCYTE (%) 0.4 % (0.0-0.7); LYMPHOCYTE (%) 17.5 % (15-42); LYMPHOCYTE COUNT 1.4 K/uL (1.0-2.8); MCH 28.5 PG (29.0-34.0); MCHC 31.3 G/DL (30.0-36.0); MCV 91.1 FL (83-99); MONOCYTE (%) 15.5 % (3-12); MONOCYTE COUNT 1.3 K/uL (0-0.8); NEUTROPHIL (%) 63.5 % (45-76); NEUTROPHIL COUNT 5.1 K/uL (1.8-6.4); PLATELET COUNT 298 K/uL (156-360); RBC DIS.WIDTH-CV 14.5 % (11.8-14.6); RED BLOOD COUNT 3.61 M/uL (3.80-5.20); WHITE BLOOD COUNT 8.1 K/uL (4.1-10.2)
[2017-07-21 07:00] VITALS: BP 171/76
[2017-07-21 07:11] LABS: CHLORIDE 111 MEQ/L (99-109); CREATININE 0.6 MG/DL (0.6-1.3); GFR ESTIMATE (CALCULATED) > 59 mL/min/; GLUCOSE 132 mg/dL (70-99); POTASSIUM 3.4 MEQ/L (3.7-5.4); SODIUM 140 MEQ/L (136-147); UREA NITROGEN (BUN) 7 mg/dL (9-23)
[2017-07-21 11:07] VITALS: BP 183/76
[2017-07-21 15:26] VITALS: BP 182/79
[2017-07-21 20:23] VITALS: BP 185/82
[2017-07-22] VITALS (7 sets, daily range): BP systolic 125–178; BP diastolic 61–86
[2017-07-23 04:00] VITALS: BP 114/56
[2017-07-23 07:27] LABS: CREATININE 1.8 MG/DL (0.6-1.3)
[2017-07-23 07:51] VITALS: BP 140/84
[2017-07-23 16:36] VITALS: BP 142/60
[2017-07-23 22:57] VITALS: BP 144/65
[2017-07-24 07:00] LABS: HEMATOCRIT 32.3 % (36.0-46.0); HEMOGLOBIN 10.2 G/DL (11.9-15.5); MCH 28.7 PG (29.0-34.0); MCHC 31.6 G/DL (30.0-36.0); PLATELET COUNT 267 K/uL (156-360); RBC DIS.WIDTH-CV 14.7 % (11.8-14.6); RBC DIS.WIDTH-SD 49.3 % (39-53); RED BLOOD COUNT 3.55 M/uL (3.80-5.20); WHITE BLOOD COUNT 7.3 K/uL (4.1-10.2)
[2017-07-24 07:36] LABS: CHLORIDE 114 MEQ/L (99-109); GFR ESTIMATE (CALCULATED) 25 mL/min/; GLUCOSE 125 mg/dL (70-99); POTASSIUM 2.8 MEQ/L (3.7-5.4); SODIUM 143 MEQ/L (136-147); UREA NITROGEN (BUN) 9 mg/dL (9-23)
[2017-07-24 08:01] VITALS: BP 162/74
[2017-07-24 16:30] VITALS: BP 147/69
[2017-07-24 23:48] VITALS: BP 110/53
[2017-07-25 07:00] VITALS: BP 142/86
[2017-07-25 15:21] VITALS: BP 162/67
[2017-07-25 15:47] LABS: BASE EXCESS -5.4 mEq/L (-3 to +3); BICARBONATE 18.9 mEq/L (22-26); CARBOXY HGB 1.7 % (0-5); COMMENTS - BLOOD GASES A+C+; DEVICE NC; O2 FLOW 2 L/MIN; PCO2 32 mm Hg (35-45); PO2 81 mm Hg (80-100); SITE LR; pH 7.38 (7.35-7.45)
[2017-07-26 00:29] VITALS: BP 176/74
[2017-07-26 06:22] LABS: HEMATOCRIT 34.9 % (36.0-46.0); HEMOGLOBIN 11.1 G/DL (11.9-15.5); MCH 28.9 PG (29.0-34.0); MCHC 31.8 G/DL (30.0-36.0); MCV 90.9 FL (83-99); PLATELET COUNT 281 K/uL (156-360); RBC DIS.WIDTH-CV 15.2 % (11.8-14.6); RED BLOOD COUNT 3.84 M/uL (3.80-5.20); WHITE BLOOD COUNT 7.9 K/uL (4.1-10.2)
[2017-07-26 07:01] LABS: CHLORIDE 120 MEQ/L (99-109); POTASSIUM 3.7 MEQ/L (3.7-5.4); SODIUM 148 MEQ/L (136-147)
[2017-07-26 07:06] LABS: CREATININE 2.2 MG/DL (0.6-1.3); GFR ESTIMATE (CALCULATED) 22 mL/min/; GLUCOSE 129 mg/dL (70-99); UREA NITROGEN (BUN) 10 mg/dL (9-23)
[2017-07-26 07:35] VITALS: BP 160/66
[2017-07-27 07:40] VITALS: BP 0/0
== END 2017-07-27 14:15 | DRG 193 ==
LOC: EME 18:23 → EDOF 20:05 → 5EAST 20:05 → ENRESERV 20:21 → 5EAST 22:17
PROVIDERS: Emergency Medicine; Family Medicine; Nurse Practitioner Acute Care
DX: J18.9 Pneumonia, unspecified organism (principal); N39.0 Urinary tract infection, site not specified; N17.9 Acute kidney failure, unspecified; Z51.5 Encounter for palliative care; J90 Pleural effusion, not elsewhere classified; J96.00 Acute respiratory failure, unspecified whether with hypoxia or hypercapnia; E87.1 Hypo-osmolality and hyponatremia; E87.6 Hypokalemia; I69.354 Hemiplegia and hemiparesis following cerebral infarction affecting left non-dominant side; E03.9 Hypothyroidism, unspecified; E11.9 Type 2 diabetes mellitus without complications; I10 Essential (primary) hypertension; E78.5 Hyperlipidemia, unspecified; I48.0 Paroxysmal atrial fibrillation; I48.2 Chronic atrial fibrillation; J45.909 Unspecified asthma, uncomplicated; M06.9 Rheumatoid arthritis, unspecified; D64.9 Anemia, unspecified; G43.909 Migraine, unspecified, not intractable, without status migrainosus; R41.82 Altered mental status, unspecified; R42 Dizziness and giddiness; F01.50 Vascular dementia, unspecified severity, without behavioral disturbance, psychotic disturbance, mood disturbance, and anxiety; K21.9 Gastro-esophageal reflux disease without esophagitis; G89.29 Other chronic pain; I25.10 Atherosclerotic heart disease of native coronary artery without angina pectoris; I25.2 Old myocardial infarction; Z66 Do not resuscitate; Z87.01 Personal history of pneumonia (recurrent); Z90.710 Acquired absence of both cervix and uterus; Z95.5 Presence of coronary angioplasty implant and graft; Z96.653 Presence of artificial knee joint, bilateral
CPT/HCPCS: 36600; 70450; 71046; 80048; 80053; 80202; 81003; 82565; 82803; 82948; 83605; 83880; 84132 91; 84439; 84443; 84484; 85025; 85027; 85610; 85730; 87040; 87086; 87502; 92526 GN; 92610 GN; 93005; 94640; 94640 76; 94760; 94799; 97530 GO; 99202; 99281; 99285; J0360; J1170; J1644; J1940; J2060; J2270; J2310; J2405; J2543; J3370; J3480; J7040; J7042; J7050; S0028